=== PATIENT | male | born 1990 | race Caucasian/White ===

== ENCOUNTER 2021-06-21 09:21 | Emergency (ER) | payer OTHER, SELFPAY ==
--- NOTE | ~2021-06-21 | XR_ITS ---
EXAMINATION: XR chest 1V portable 06/21/2021 09:59 INDICATION: Chest pain PROCEDURE: AP portable chest COMPARISON: No prior studies for comparison. FINDINGS: The lungs are clear. The cardiomediastinal silhouette is within normal limits. There are no pleural effusions. There is no pneumothorax suspected. IMPRESSION: 1: NO ACUTE CARDIOPULMONARY DISEASE. Reviewed, dictated and finalized at location A.
--- NOTE | 2021-06-21 09:34 | ECG_ITS ---
Measurements Intervals [place] Rate: 95 P: 33 MO: 178 QRS: 21 QRSD: 105 T: 34 QT: 341 QTc: 430 Interpretive Statements SINUS RHYTHM NORMAL ECG NO PREVIOUS ECG AVAILABLE FOR COMPARISON Electronically Signed On 06-21-2021 12:20:39 CDT by Aleks Hare M.D.
--- NOTE | 2021-06-21 09:35 | ED.ANXIETY ---
HPI - Anxiety General Chief Complaint: Anxiety Stated Complaint: anxiety Time Seen by Provider: 06/21/21 09:30 Source: RN notes reviewed History of Present Illness HPI narrative: Patient presents emergency room from home for anxiety. Patient states he has a history of anxiety and panic attacks and has been come more frequent and a daily occurrence he states that with these he begins to feel short of breath and breathes heavily as well as a tightness around his chest he states he has numbness and tingling in his hands and feet he states he had seen a doctor for this before in past does not currently see anyone and is not taking anxiety medicine he denies any fevers or chills abdominal pain nausea or vomiting. Related Data Allergies Allergy/AdvReac Type Severity Reaction Status Date / Time No Known Allergies Allergy Verified 06/21/21 09:47 Review of Systems Review of Systems: Gen.: Denies fevers or chills ENT: Denies congestion Respiratory: Ports shortness of breath CV: Reports chest tightness GI: Denies abdominal pain nausea, emesis or diarrhea Musculoskeletal: Denies back pain or muscle pain Neuro: Denies numbness, tingling, weakness or focal weakness Skin: Denies rash Psych: Reports anxiety Except as documented, all other systems reviewed and negative PMFSH Past Medical History Medical History (Updated 06/21/21 @ 13:59 by Hilton Cai DO) Anxiety Social History Social History (Updated 06/21/21 @ 09:36 by Hilton Cai DO) Smoking status: Current every day smoker Exam Narrative: APPEARANCE: Anxious in appearance, nontoxic, resting in bed EYES: EOMI HEENT: Normocephalic, atraumatic, OMM RESPIRATORY: No respiratory distress Clear to auscultation bilaterally with no rhonchi wheezing or rales. CARDIOVASCULAR: Tachycardic and regular without murmurs rubs or gallops. ABDOMINAL: Soft, nontender, nondistended, no rebound or guarding MUSCULOSKELETAl: Moves all extremities. No clubbing, cyanosis or edema. NEURO: Awake and alert. Following commands, speech normal, no focal deficits SKIN:: Warm, dry. No rashes lesions or abrasions PSYCHIATRIC: Anxious in appearance, denies suicidal ideation denies homicidal ideation Course Course Emergency Course: Discussed with patient he states that he has been sober for 15 months and just began drinking approximately 4 months ago states he is drinking approximately a pint a day. He does wish to have information for rehabilitation Discussed with patient results of workup and diagnosis. Discussed need for follow-up with primary care, proper use of medication, and reasons to return to the emergency department. Patient understands and agrees to current treatment plan Vital Signs Vital signs: Vital Signs Temperature 98.2 F 06/21/21 09:38 Pulse Rate 115 H 06/21/21 09:38 Respiratory Rate 24 H 06/21/21 09:38 Blood Pressure 146/93 H 06/21/21 09:38 Pulse Oximetry 97 06/21/21 09:38 Temperature 98.2 F 06/21/21 09:38 Pulse Rate 115 H 06/21/21 09:38 Respiratory Rate 24 H 06/21/21 09:38 Blood Pressure 146/93 H 06/21/21 09:38 Pulse Oximetry 97 06/21/21 09:38 MDM - Anxiety Lab Data Result diagrams: 06/21/21 10:23 06/21/21 10:23 Labs: Lab Results 06/21/21 06/21/21 Range/Units 10:23 10:23 WBC 9.7 (4.5-10.0) K/mm3 RBC 5.05 (4.6-6.20) M/mm3 Hgb 16.8 (14.0-18.0) g/dL Hct 47.2 (42.0-52.0) % MCV 93.5 (80-100) fl MCH 33.3 (26-34) pg MCHC 35.6 (32-36) g/dl RDW 11.4 L (11.5-14.5) % Plt Count 321 (150-375) k/mm3 MPV 8.6 (7.4-10.4) fl Immature Gran % (Auto) 0.2 (0-0.5) % Neut % (Auto) 72.7 (45.5-73.1) % Lymph % (Auto) 20.4 (18.3-44.2) % Cache % (Auto) 6.4 (2.6-8.5) % Eos % (Auto) 0.0 (0-4.4) % Baso % (Auto) 0.3 (0.2-1.2) % Lymph # (Auto) 1.97 (0.9-3.2) K/mm3 Cache # (Auto) 0.6 (0.1-0.6) K/mm3 Eos # (Auto) 0.0 (0-0.3) K/mm3 Baso # (Auto) 0.0 (0.0-
[2021-06-21 09:38] VITALS: BP 146/93; PULSE 115; RESP 24; TEMP 36.8; O2SAT 97
[2021-06-21] MEDS: LORazepam INJ (*CRX) 2 MG/ML VIAL 1 MG IV PUSH (10:21)
[2021-06-21 10:30] LABS: Basophils Percent Auto 0.3 % (0.2-1.2); Hematocrit 47.2 % (42.0-52.0); Hemoglobin 16.8 g/dL (14.0-18.0); Immature Granulocyte Absolute 0.02 K/mm3 (0.00-0.031); Immature Granulocyte Percent A 0.2 % (0-0.5); Lymphocytes Absolute Auto 1.97 K/mm3 (0.9-3.2); Lymphocytes Percent Auto 20.4 % (18.3-44.2); Mean Corpuscular HGB Conc 35.6 g/dl (32-36); Mean Corpuscular Hemoglobin 33.3 pg (26-34); Mean Corpuscular Volume 93.5 fl (80-100); Mean Platelet Volume 8.6 fl (7.4-10.4); Monocytes Absolute Auto 0.6 K/mm3 (0.1-0.6); Monocytes Percent Auto 6.4 % (2.6-8.5); Neutrophils Percent Auto 72.7 % (45.5-73.1); Platelet Count Result 321 k/mm3 (150-375); Red Blood Count 5.05 M/mm3 (4.6-6.20); Red Cell Distribution Width 11.4 % (11.5-14.5); White Blood Count 9.7 K/mm3 (4.5-10.0)
[2021-06-21 10:39] LABS: Alanine Aminotransferase 52 U/L (4-50); Albumin Level 4.5 g/dL (3.5-5.1); Alkaline Phosphatase 71 U/L (38-126); Anion Gap 12 mmol/L (8-16); Aspartate Amino Transferase 52 U/L (17-59); Bilirubin,Total 0.5 mg/dL (0.2-1.3); Blood Urea Nitrogen 9 mg/dL (9-20); Calcium 8.7 mg/dL (8.4-10.2); Carbon Dioxide 24 mmol/L (22-30); Chloride 101 mmol/L (98-107); Estimated CRCL calculation 116 ml/min; Estimated Glomerular Filt Rate > 60; Glucose 99 mg/dL (65-110); Potassium 3.7 mmol/L (3.4-5.0); Sodium 137 mmol/L (137-145)
[2021-06-21] MEDS: SODIUM CHLORIDE 0.9% IV 1,000 ML 999 ML IV CONT ×2 (10:52→13:11)
[2021-06-21] MEDS: THIAMINE HCL 200 MG/2 ML VIAL 100 MG IV PUSH (13:10)
[2021-06-21 14:09] VITALS: PULSE 97; RESP 21; O2SAT 97
[2021-06-21 14:26] VITALS: BP 129/99; PULSE 110; RESP 16; O2SAT 100
== END 2021-06-21 14:30 | disposition home or self-care (01) ==
PROVIDERS: Emergency Provider Emergency Medicine
DX: F41.9 Anxiety disorder, unspecified (principal); F10.10 Alcohol abuse, uncomplicated; F17.200 Nicotine dependence, unspecified, uncomplicated
CPT/HCPCS: 36415; 71045; 80053; 85025; 93005; 96361; 96374; 96375; 99284; J2060; J3411; J7030

== ENCOUNTER 2021-08-03 23:39 | Emergency (ER) | payer OTHER, SELFPAY ==
[2021-08-03 23:43] VITALS: BP 122/80; PULSE 102; RESP 16; TEMP 36.7; O2SAT 97
--- NOTE | 2021-08-04 | PC.NURSE ---
pt denying SI upon arrival, sitter at bedside per EDP Froy.
[2021-08-04 00:59] LABS: Add Urine Microscopic? NO; Appearance Urine Clear (Clear); Basophils Absolute Auto 0.1 K/mm3 (0.0-0.1); Basophils Percent Auto 0.6 % (0.2-1.2); Bilirubin Urine Negative (Negative); Blood Urine Negative (Negative); Color Urine Yellow (Yellow); Eosinophils Percent Auto 0.1 % (0-4.4); Glucose Urine UA Negative (Negative); Hematocrit 53.8 % (42.0-52.0); Hemoglobin 18.9 g/dL (14.0-18.0); Immature Granulocyte Absolute 0.02 K/mm3 (0.00-0.031); Immature Granulocyte Percent A 0.2 % (0-0.5); Ketones Urine Negative (Negative); Leukocyte Esterase Ur Negative LEU/UL (Negative); Lymphocytes Absolute Auto 2.58 K/mm3 (0.9-3.2); Lymphocytes Percent Auto 27.7 % (18.3-44.2); Mean Corpuscular HGB Conc 35.1 g/dl (32-36); Mean Corpuscular Volume 94.1 fl (80-100); Mean Platelet Volume 8.2 fl (7.4-10.4); Monocytes Absolute Auto 0.6 K/mm3 (0.1-0.6); Monocytes Percent Auto 5.9 % (2.6-8.5); Neutrophils Absolute Auto 6.1 K/mm3 (1.3-6.7); Neutrophils Percent Auto 65.5 % (45.5-73.1); Nitrate Urine Negative (Negative); Platelet Count Result 284 k/mm3 (150-375); Protein Urine Negative (Negative); Red Blood Count 5.72 M/mm3 (4.6-6.20); Red Cell Distribution Width 11.9 % (11.5-14.5); Specific Grav Ur 1.012 (1.001-1.035); Urobilinogen Urine Negative mg/dL (<2.0); White Blood Count 9.3 K/mm3 (4.5-10.0)
[2021-08-04 01:13] LABS: Amphetamine Screen Urine Negative (Negative); Barbiturate Screen Urine Negative (Negative); Benzodiazepines Screen Urine Negative (Negative); Cannabinoid Screen Urine Negative (Negative); Cocaine Screen Urine Negative (Negative); Methadone Screen Urine Negative (Negative); Opiate Screen Urine Negative (Negative); Phencyclidine Screen Urine Negative (Negative)
[2021-08-04 01:16] LABS: Alanine Aminotransferase 54 U/L (4-50); Albumin Level 4.4 g/dL (3.5-5.1); Alkaline Phosphatase 67 U/L (38-126); Anion Gap 15 mmol/L (8-16); Aspartate Amino Transferase 63 U/L (17-59); Blood Urea Nitrogen 14 mg/dL (9-20); Carbon Dioxide 20 mmol/L (22-30); Chloride 106 mmol/L (98-107); Estimated Glomerular Filt Rate > 60; Glucose 97 mg/dL (65-110); Potassium 3.9 mmol/L (3.4-5.0); Sodium 141 mmol/L (137-145)
[2021-08-04 01:18] LABS: Ethanol 297 mg/dL (<10)
[2021-08-04 01:34] LABS: SARS-CoV-2 RNA PCR Negative
--- NOTE | 2021-08-04 04:25 | ED.PSYCH ---
HPI - Psych General Chief Complaint: Psychiatric Symptoms <Gregorio Lobo MD - Last Filed: 08/04/21 07:00> Stated Complaint: SI, ETOH, lac to wrist <Gregorio Lobo MD - Last Filed: 08/04/21 07:00> Time Seen by Provider: 08/03/21 23:57 <Gregorio Lobo MD - Last Filed: 08/04/21 07:00> History of Present Illness HPI Narrative: Patient is a 30-year-old male who presents ER with alcohol intoxication and possible suicidal ideation. Reports she was feeling very down due to the fact that his significant other is currently rehabilitating from alcohol. He is having stress at home. Was recently in the ER for anxiety. Everything became overwhelming this evening and he used a can account processor to cut his left wrist. Reports she is cut in the past 2 feel pain and then feel improved. Reports that was not an actual suicide attempt. He does contemplate suicide but has no specific plan. Denies any ingestion. Reports has been drinking vodka all day. Please accompanied patient to the ER and filled out an affidavit. Patient reports tetanus shot is up-to-date. <Gregorio Lobo MD - Last Filed: 08/04/21 07:00> Related Data Allergies/Adverse Reactions: Allergies Allergy/AdvReac Type Severity Reaction Status Date / Time No Known Allergies Allergy Verified 08/04/21 00:04 <Gregorio Lobo MD - Last Filed: 08/04/21 07:00> Review of Systems Review of Systems: All systems reviewed & are unremarkable except as noted in HPI and below <Gregorio Lobo MD - Last Filed: 08/04/21 07:00> Constitutional: Constitutional: Denies chills, Denies fever(s) and Denies weakness <Gregorio Lobo MD - Last Filed: 08/04/21 07:00> ENT: Denies nasal congestion and Denies sore throat <Gregorio Lobo MD - Last Filed: 08/04/21 07:00> Cardiovascular: Cardiovascular: Denies chest pain, Denies rapid heart rate and Denies radiating jaw, neck or arm pain <Gregorio Lobo MD - Last Filed: 08/04/21 07:00> Respiratory: Respiratory: Denies cough and Denies dyspnea <Gregorio Lobo MD - Last Filed: 08/04/21 07:00> Gastrointestinal: Gastrointestinal: Denies abdominal pain, Denies nausea and Denies vomiting <Gregorio Lobo MD - Last Filed: 08/04/21 07:00> Psychiatric: Psychiatric: Reports depression, Denies homicidal ideation and Reports suicidal ideation <Gregorio Lobo MD - Last Filed: 08/04/21 07:00> PMFSH Past Medical History Medical History: Medical History (Updated 08/04/21 @ 12:16 by Devaughn Rico MD) Alcoholism Anxiety Depression <Gregorio Lobo MD - Last Filed: 08/04/21 07:00> Surgical History Surgical History: Surgical History (Updated 08/04/21 @ 04:37 by Gregorio Lobo MD) No pertinent past surgical history <Gregorio Lobo MD - Last Filed: 08/04/21 07:00> Social History Social History: Social History (Updated 06/21/21 @ 09:36 by Hilton Cai DO) Smoking status: Current every day smoker <Gregorio Lobo MD - Last Filed: 08/04/21 07:00> Exam Narrative: GENERAL: Intoxicated-appearing, well-nourished, and in no acute distress. HEAD: Normocephalic, atraumatic. EYES: PERRL and EOMI. ENT: Mucous membranes moist. CHEST: Clear to auscultation. No respiratory distress. HEART: Regular rate and rhythm. Normal peripheral pulses. ABDOMEN: Soft, nontender, nondistended. EXTREMITIES: Normal range of motion. No edema. SKIN: Warm, dry, no rash. 4 similar laceration left wrist without exposure of tendon or muscle. No bleeding. NEURO: Alert and oriented x3. PSYCH: Intoxicated, endorses depression and anxiety. No hallucinations. Denies suicidal intent at this time. <Gregorio Lobo MD - Last Filed: 08/04/21 07:00> Course Course Emergency Course: Patient resting comfortably. Waiting for patient to be sober so crisis can come evaluate him. Transfer care to Dr. Rico. <Gregorio Lobo MD - Last Filed: 08/04/21 07:00> Reevaluat
[2021-08-04 07:16] VITALS: BP 129/96; PULSE 109; RESP 18; TEMP 36.7; O2SAT 98
[2021-08-04 11:15] LABS: Ethanol 35 mg/dL (<10)
--- NOTE | 2021-08-04 11:32 | PC.NURSE ---
pt lunch tray arrived and pt is in bed eating
--- NOTE | 2021-08-04 15:51 | PC.NURSE ---
Report made to the [facility] [employer] [facility] Reporting System. Patient was reported as a clear and present danger to himself. Dr. Devaughn Rico stated that patient was a danger to self as evidenced by cutting his wrist.
== END 2021-08-04 13:09 | disposition home or self-care (01) ==
PROVIDERS: Emergency Provider Emergency Medicine; PCP Family Medicine
DX: S61.512A Laceration without foreign body of left wrist, initial encounter (principal); F10.120 Alcohol abuse with intoxication, uncomplicated; F41.9 Anxiety disorder, unspecified; F32.A Depression, unspecified; F17.210 Nicotine dependence, cigarettes, uncomplicated; F10.129 Alcohol abuse with intoxication, unspecified; Z20.822 Contact with and (suspected) exposure to COVID-19; X78.9XXA Intentional self-harm by unspecified sharp object, initial encounter; Y90.8 Blood alcohol level of 240 mg/100 ml or more
CPT/HCPCS: 12001; 36415; 80053; 80307; 81003; 84443; 85025; 99284; C9803; U0003; U0005

== ENCOUNTER 2022-10-30 18:21 | Emergency (ER) | payer OTHER, SELFPAY ==
--- NOTE | 2022-10-30 18:30 | ED.EYEPROB ---
HPI - Eye Problem General Chief complaint: Skin/Abscess/Foreign Body Stated complaint: Eye Swelling abd Blister Time Seen by Provider: 10/30/22 18:44 Source: patient and RN notes reviewed Mode of arrival: ambulatory Limitations: no limitations Related Data Home Medications Medication Instructions Recorded Confirmed hydroxyzine pamoate 25 mg capsule mg 10/30/22 olanzapine 10 mg tablet mg 10/30/22 venlafaxine 75 mg capsule,extended mg PO 10/30/22 release 24 hr Allergies Allergy/AdvReac Type Severity Reaction Status Date / Time No Known Allergies Allergy Verified 10/30/22 18:39 Review of Systems Review of Systems: CONSTITUTIONAL: Denies malaise, chills, sweats, or fever. EYES: Denies visual changes. Reports redness, irritation, discharge. ENT: Denies rhinorrhea, congestion, sinus pain, otalgia or sore throat. SKIN: Denies rash or itching. NEUROLOGIC: Denies numbness, weakness, or headache. PSYCHIATRIC: Denies anxiety or depression. All systems reviewed & are unremarkable except as noted in HPI and below PMFSH Past Medical History Medical History (Updated 08/05/21 @ 00:00 by Syed Chaves) Alcoholism Anxiety Depression Surgical History Surgical History (Updated 08/04/21 @ 04:37 by Gregorio Lobo MD) No pertinent past surgical history Social History Social History (Updated 06/21/21 @ 09:36 by Hilton Cai DO) Smoking status: Current every day smoker Comments At time of signature, agree with nursing past medical, surgical, social and family history. There is no relevant family history pertinent to the presenting complaint Exam Narrative: GENERAL: Well-appearing, well-nourished, and in no acute distress. HEAD: Normocephalic, atraumatic. EYES: PERRLA, sclera clear, and EOMI. No nystagmus. Bilateral conjunctivae injected. Upper and lower eyelid unremarkable, no periorbital edema noted ENT: Nares clear, turbinates pink, no rhinorrhea or epistaxis. Mucous membranes moist. TM pearly flroes with sharp light reflex bilaterally; no tragal tenderness. NECK: Supple. CHEST: No respiratory distress. Speaks in full sentences. HEART: Regular rate and rhythm. SKIN: Warm, dry, no visible rash. NEURO: Alert and oriented x3. PSYCH: Normal mood and affect Course Course Emergency Course: Patient is aware of diagnosis, understands and agrees to treatment plan. Anticipatory guidance given. Patient agrees to follow-up as directed and is aware of reasons to seek care at the emergency department. Portions of this record may have been created with voice recognition software Level of Care: Express Care Visit Vital Signs Vital signs: Reviewed. MDM - Eye Problem MDM Narrative Medical decision making narrative: Consideration of the following conditions may be warranted for the presenting problem, they are not final diagnoses: Bacterial conjunctivitis, allergic conjunctivitis, viral conjunctivitis, foreign body, blepharitis, chalazion, hordeolum, corneal abrasion, preseptal cellulitis, orbital cellulitis. No evidence of proptosis, ophthalmoplegia, vision loss, pain with eye movement. Exam findings show no acute concerns or changes; patient is non-toxic appearing and is in no distress. Patient is appropriate for outpatient treatment and follow-up. Critical Care Time Critical Care Time Critical Care Time: No Discharge Plan Discharge Prescriptions: No Action venlafaxine 75 mg capsule,extended release 24hr PO olanzapine 10 mg tablet hydroxyzine pamoate 25 mg capsule Follow-up/Referrals: PHYSICIAN,HEALTH ADMINISTRATION TEACHER [Primary Care Provider] -
[2022-10-30 18:37] VITALS: BP 128/78; PULSE 90; RESP 16; TEMP 37.4; O2SAT 99
--- NOTE | 2022-10-30 18:49 | ED.SKABFB ---
HPI - Skin/Abscess/Foreign Bdy General Chief complaint: Skin/Abscess/Foreign Body Stated complaint: Eye Swelling abd Blister Time Seen by Provider: 10/30/22 18:44 Source: patient and RN notes reviewed Mode of arrival: ambulatory Limitations: dementia History of Present Illness HPI narrative: 32-year-old male presents concern for redness, swelling, tenderness under his right eye. He reports he noticed a small red bump yesterday and became more swollen today. He denies itching and pain reports tenderness when touched. He denies fever, body aches, chills, sweats. He denies vision changes or drainage from the eye. He reports in high school he had shingles around his eye. He denies any eye pain MD complaint: other (Redness) Related Data Home Medications Medication Instructions Recorded Confirmed hydroxyzine pamoate 25 mg capsule mg 10/30/22 olanzapine 10 mg tablet mg 10/30/22 venlafaxine 75 mg capsule,extended mg PO 10/30/22 release 24 hr Allergies Allergy/AdvReac Type Severity Reaction Status Date / Time No Known Allergies Allergy Verified 10/30/22 18:39 Review of Systems Review of Systems: CONSTITUTIONAL: Denies malaise, chills, sweats, or fever. EYES: Denies redness, or discharge. ENT: Denies rhinorrhea, congestion, swollen lips, swollen tongue CARDIOVASCULAR: Denies chest pain, palpitations, or edema. RESPIRATORY: Denies cough or dyspnea. GASTROINTESTINAL: Denies abdominal pain, nausea, vomiting SKIN: Reports redness, swelling, tenderness under the right eye, not involving the eye. Denies purulent drainage, bullae, numbness, pain beyond proportion MUSCULOSKELETAL: Denies joint pain or myalgia. NEUROLOGIC: Denies headache. All systems reviewed & are unremarkable except as noted in HPI and below PMFSH Past Medical History Medical History (Updated 10/30/22 @ 18:52 by Radha Maciel NP) Alcoholism Anxiety Depression Surgical History Surgical History (Updated 08/04/21 @ 04:37 by Gregorio Lobo MD) No pertinent past surgical history Social History Social History (Updated 06/21/21 @ 09:36 by Hilton Cai DO) Smoking status: Current every day smoker Comments At time of signature, agree with nursing past medical, surgical, social and family history. There is no relevant family history pertinent to the presenting complaint Exam Narrative: GENERAL: Well-appearing, well-nourished, and in no acute distress. HEAD: Normocephalic, atraumatic. EYES: PERRLA, conjunctivae clear ENT: Mucous membranes moist. NECK: Supple. No lymphadenopathy CHEST: Clear to auscultation. No respiratory distress. HEART: Regular rate and rhythm. SKIN: Warm, dry. Erythema, induration, tenderness, warmth with sharp margins noted next to the nose under the right eye without eye involvement, to very small clear fluid-filled vesicles noted. No bullae, necrosis, ecchymosis, crepitus noted. NEURO: Alert and oriented x3. PSYCH: Normal mood and affect Course Course Emergency Course: Concerning area appears more consistent with cellulitis than with herpes zoster, however patient was advised that if his symptoms do not improve in 36 hours or if they worsen he should seek re-evaluation Patient is aware of diagnosis, understands and agrees to treatment plan. Anticipatory guidance given. Patient agrees to follow-up as directed and is aware of reasons to seek care at the emergency department. Portions of this record may have been created with voice recognition software Level of Care: Express Care Visit Vital Signs Vital signs: Vital Signs Temperature 99.3 F 10/30/22 18:37 Pulse Rate 90 10/30/22 18:37 Respiratory Rate 16 10/30/22 18:37 Blood Pressure 128/78 10/30/22 18:37 Pulse Oximetry 99 10/30/22 18:37 Oxygen Delivery Room Air 10/30/22 18:37 Temperature 99.3 F 10/30/22 18:37 Pulse Rate 90 10/30/22 18:37 Respiratory Rate 16 10/30/22 18:37 Blood Pressure 128/78
== END 2022-10-30 18:54 | disposition home or self-care (01) ==
PROVIDERS: Emergency Provider Nurse Practitioner
DX: L03.211 Cellulitis of face (principal); F17.200 Nicotine dependence, unspecified, uncomplicated; F41.9 Anxiety disorder, unspecified; F32.A Depression, unspecified
CPT/HCPCS: 99213; G0463